=== PATIENT | male | born 1990 | race Caucasian/White ===

== ENCOUNTER 2020-11-13 13:37 | Inpatient (IN) | payer OTHER ==
[~2020-11-13] VITALS: Ht 177.8 cm; Wt 77.0 kg
[2020-11-13 15:51] LABS: ALANINE AMINOTRANSFERASE 29 U/L (12-78); ALBUMIN 4.1 G/DL (3.4-5.0); ALBUMIN/GLOBULIN RATIO 1.1 (1.1-1.5); ALKALINE PHOSPHATASE 78 IU/L (46-116); ANION GAP 38 (8-16); ASPARTATE AMINO TRANSFERASE 19 U/L (10-37); BILIRUBIN,TOTAL 0.9 MG/DL (0.1-1.0); BLOOD UREA NITROGEN 38 MG/DL (7-18); BUN/CREATININE RATIO 14.2 (5.4-32.0); CALCIUM 9.3 MG/DL (8.5-10.1); CHLORIDE 83 MMOL/L (99-107); CREATININE 2.68 MG/DL (0.60-1.10); SODIUM 129 MMOL/L (135-145); TOTAL PROTEIN 7.8 G/DL (6.4-8.2); eGFR 28 ML/MIN
[2020-11-13] MEDS ORDERED: insulin regular, human U-100 3ml vial - multi-dose IV ONE (16:00)
[2020-11-13] MEDS ORDERED: normal saline 1000ML IV soln IVB ONE ×3 (16:00→18:45)
[2020-11-13 16:12] LABS: GLUCOSE 869 MG/DL (70-104); POTASSIUM 6.5 MMOL/L (3.5-5.1); TOTAL CARBON DIOXIDE 8.5 MMOL/L (24-32)
[2020-11-13] MEDS ORDERED: insulin regular, human 10 units/0.1 ml syringe IV ONE (16:15)
[2020-11-13] MEDS ORDERED: albuterol 2.5 MG/3 ML nebule NEB ONE (16:25)
[2020-11-13] MEDS ORDERED: sodium polystyrene sulfonate 15gm/60ml oral suspension PO ONE (16:25)
[2020-11-13] MEDS: Insulin Reg/NS 100units/100mL 100 ML IV PRN (16:45)
[2020-11-13 16:50] LABS: ABG BASE EXCESS -22.9 mmol/L (-2.0-2.0); ABG HCO3 4.5 mmol/L (22.0-26.0); ABG OXYGEN SATURATION 90.3 % (94-97); ABG PCO2 (T) 14.5 mmHg (35.0-48.0); ABG PO2 (T) 69.2 mmHg (75.0-100.0); ALLEN'S TEST POSITIVE; FCOHb 0.2 % (0.0-3.9); FMetHb 0.4 % (0.0-1.5); FO2Hb 89.8 % (94-97); TOTAL HEMOGLOBIN 12.9 G/dl (14.0-18.0)
[2020-11-13] MEDS ORDERED: INSU100C10 SQ (17:11)
[2020-11-13] MEDS ORDERED: INSU100V9 SQ ×2 (17:11)
[2020-11-13 17:22] LABS: BASOPHILS # (AUTO) 0.1 X10'3 (0-0.2); BASOPHILS % (AUTO) 0.3 % (0-1); EOSINOPHILS % (AUTO) 0 % (0-6); LYMPHOCYTES # (AUTO) 1.2 X10'3 (1.1-4.8); LYMPHOCYTES % (AUTO) 5.6 % (21-51); MEAN PLATELET VOLUME 9.6 FL (7.4-10.4); MONOCYTES # (AUTO) 1.4 X10'3 (0-0.9); MONOCYTES % (AUTO) 6.6 % (2-12); NEUTROPHILS % (AUTO) 87.5 % (42-75); PLATELET COUNT 265 X10'3 (140-440); WHITE BLOOD COUNT 21.8 X10'3 (4.5-11.0)
[2020-11-13 17:29] LABS: HEMATOCRIT 40.3 % (42.0-52.0); HEMOGLOBIN 13.2 g/dl (14.0-17.9); MEAN CORPUSCULAR HEMOGLOBIN 30.7 PG (27.0-31.0); MEAN CORPUSCULAR HGB CONC 32.9 g/dL (33.0-36.5); MEAN CORPUSCULAR VOLUME 93.5 FL (78-98); RED BLOOD COUNT 4.31 X10'6 (4.70-6.10); RED CELL DISTRIBUTION WIDTH 13.2 % (11.5-14.5)
[2020-11-13 17:39] LABS: CLARITY,URINE CLOUDY (Clear); COLOR,URINE STRAW (Yellow); GLUCOSE, URINE >=1000 mg/dl (Neg); KETONES,URINE 40 mg/dl (Neg); LEUKOCYTE ESTERASE ,URINE NEGATIVE (Neg); NITRITES, URINE NEGATIVE (Neg); OCCULT BLOOD,URINE NEGATIVE (Neg); PROTEIN,URINE NEGATIVE (Neg); UROBILINOGEN,URINE 0.2 E.U/dL (0.2-1.0)
[2020-11-13 17:40] LABS: UA COLLECTION TYPE URINAL
[2020-11-13 17:48] LABS: BACTERIA,URINE 4+ /HPF (Neg); SQUAMOUS EPITHELIAL CELL,UR MODERATE /LPF (FEW)
[2020-11-13 17:49] LABS: RBC,URINE 0-2 /HPF (0-2); WBC CLUMPS,URINE FEW /HPF (NEGATIVE)
[2020-11-13 17:52] LABS: YEAST MODERATE /HPF (NEGATIVE)
[2020-11-13] MEDS ORDERED: CefTRIAXone/D5W-Rocephin 1gm 50 ML IV ONE (18:10)
[2020-11-13] MEDS ORDERED: metoclopramide 5 mg/ml inj IV PRN (18:20)
[2020-11-13] MEDS ORDERED: magnesium 2GM in 50ml NS 50 ML IV PRN (18:20)
[2020-11-13] MEDS ORDERED: potassium Cl 20 mEq SR tablet PO PRN ×3 (18:20)
[2020-11-13] MEDS ORDERED: acetaminophen 325mg tablet PO PRN ×2 (18:20)
[2020-11-13] MEDS ORDERED: sodium phosphate inj. 30 MMOL in dextrose 5%-water 250 ML IV PRN (18:20)
[2020-11-13] MEDS ORDERED: sodium bicarbonate (8.4%) inj. 100 MEQ in dextrose 5% water 500ml 500 ML IV PRN (18:20)
[2020-11-13] MEDS ORDERED: mag hydrox/Alum hydrox/simeth 30ml oral suspension PO PRN (18:20)
[2020-11-13] MEDS ORDERED: Neutra Phos packet PO PRN (18:20)
[2020-11-13] MEDS ORDERED: potassium Cl 40MEQ/1/2NS 520ml 520 ML IV PRN ×4 (18:20)
[2020-11-13] MEDS ORDERED: magnesium Cl slow-release 64mg tablet PO PRN (18:20)
[2020-11-13] MEDS ORDERED: sodium bicarbonate (8.4%) inj. 50 MEQ in dextrose 5% water 500ml 250 ML IV PRN (18:20)
[2020-11-13] MEDS ORDERED: magnesium 4gm in 100ml NS 100 ML IV PRN (18:20)
[2020-11-13] MEDS ORDERED: sodium phosphate inj. 15 MMOL in dextrose 5%-water 250 ML IV PRN (18:20)
[2020-11-13] MEDS ORDERED: magnesium hydroxide 30ml (MOM) UD suspension PO PRN (18:20)
[2020-11-13 19:34] LABS: ALANINE AMINOTRANSFERASE 21 U/L (12-78); ALBUMIN 3.7 G/DL (3.4-5.0); ALKALINE PHOSPHATASE 74 IU/L (46-116); ANION GAP 32 (8-16); ASPARTATE AMINO TRANSFERASE 6 U/L (10-37); BILIRUBIN,TOTAL 0.6 MG/DL (0.1-1.0); BLOOD UREA NITROGEN 36 MG/DL (7-18); BUN/CREATININE RATIO 14.3 (5.4-32.0); CALCIUM 8.5 MG/DL (8.5-10.1); CHLORIDE 96 MMOL/L (99-107); CREATININE 2.52 MG/DL (0.60-1.10); ETHANOL < 0.010 GM/DL (0.0-0.010); PHOSPHORUS 5.3 MG/DL (2.3-4.5); POTASSIUM 4.5 MMOL/L (3.5-5.1); SODIUM 139 MMOL/L (135-145); TOTAL PROTEIN 7.3 G/DL (6.4-8.2); eGFR 30 ML/MIN
[2020-11-13] MEDS: fluconazole 100mg tablet PO SCH (19:46)
[2020-11-13] MEDS: vancomycin/NS 1 GM ADD-VANTAGE 250 ML IV SCH (19:46)
[2020-11-13] MEDS: enoxaparin 40mg/0.4ml syringe SQ SCH (19:50)
[2020-11-13 19:57] LABS: GLUCOSE 574 MG/DL (70-104)
[2020-11-13 19:58] LABS: TOTAL CARBON DIOXIDE 11.1 MMOL/L (24-32)
[2020-11-13] MEDS: K and/or MAG REPLACEMENT MC SCH (20:00)
[2020-11-13] MEDS ORDERED: K and/or MAG REPLACEMENT MC SCH (20:00)
--- NOTE | 2020-11-13 20:06 | NUR ---
[phone]. Insulin drip left at 7 u/h
[2020-11-13 20:43] LABS: URINE AMPHETAMINE SCREEN NEGATIVE (Neg); URINE BARBITUATE SCREEN NEGATIVE (Neg); URINE BENZODIAZEPINES SCREEN NEGATIVE (Neg); URINE CANNABINOID SCREEN NEGATIVE (Neg); URINE COCAINE SCREEN NEGATIVE (Neg); URINE METHADONE SCREEN NEGATIVE (Neg); URINE OPIATE SCREEN NEGATIVE (Neg); URINE PHENCYCLIDINE SCREEN NEGATIVE (Neg)
[2020-11-13] MEDS ORDERED: temazepam 15mg capsule PO PRN (21:00)
[2020-11-13 22:00] VITALS: BP 109/56
--- NOTE | 2020-11-13 22:00 | NUR ---
Received the pt from ER. Pt AAOx3, breathing even and unlabored on room air. Follows command, moves all 4 extremities. Insulin running at 7 units/hr. Updated on plan of care. Pt oriented to the unit, advised to call for help, verbalized understanding.
[2020-11-13] MEDS: normal saline 1000ml 1,000 ML IV SCH ×2 (22:10→22:20)
[2020-11-13] MEDS: benzocaine/menthol oral lozeng 1 EACH BOX MM PRN (22:37)
[2020-11-13 22:44] LABS: ALBUMIN 3.2 G/DL (3.4-5.0); ANION GAP 24 (8-16); BLOOD UREA NITROGEN 33 MG/DL (7-18); BUN/CREATININE RATIO 15.9 (5.4-32.0); CALCIUM 8.1 MG/DL (8.5-10.1); CHLORIDE 104 MMOL/L (99-107); CREATININE 2.07 MG/DL (0.60-1.10); GLUCOSE 358 MG/DL (70-104); PHOSPHORUS 2.9 MG/DL (2.3-4.5); POTASSIUM 3.9 MMOL/L (3.5-5.1); SODIUM 144 MMOL/L (135-145); TOTAL CARBON DIOXIDE 16.3 MMOL/L (24-32); eGFR 38 ML/MIN
[2020-11-14] MEDS: potassium CL 20mEq in D5-1/2NS 1,000 ML IV PRN ×2 (01:32→07:48)
[2020-11-14] MEDS: normal saline 1000ml 1,000 ML IV SCH ×4 (02:20→20:59)
[2020-11-14 03:36] LABS: BASOPHILS # (AUTO) 0.1 X10'3 (0-0.2); BASOPHILS % (AUTO) 0.4 % (0-1); EOSINOPHILS % (AUTO) 0 % (0-6); HEMATOCRIT 33.2 % (42.0-52.0); HEMOGLOBIN 11.1 g/dl (14.0-17.9); LYMPHOCYTES # (AUTO) 2.6 X10'3 (1.1-4.8); LYMPHOCYTES % (AUTO) 13.8 % (21-51); MEAN CORPUSCULAR HEMOGLOBIN 30.4 PG (27.0-31.0); MEAN CORPUSCULAR HGB CONC 33.5 g/dL (33.0-36.5); MEAN CORPUSCULAR VOLUME 90.7 FL (78-98); MEAN PLATELET VOLUME 8.5 FL (7.4-10.4); MONOCYTES # (AUTO) 1.3 X10'3 (0-0.9); NEUTROPHILS # (AUTO) 14.8 X10'3 (1.8-7.7); NEUTROPHILS % (AUTO) 78.8 % (42-75); PLATELET COUNT 245 X10'3 (140-440); RED BLOOD COUNT 3.66 X10'6 (4.70-6.10); RED CELL DISTRIBUTION WIDTH 13.4 % (11.5-14.5); WHITE BLOOD COUNT 18.7 X10'3 (4.5-11.0)
[2020-11-14 03:40] LABS: ALBUMIN 3.1 G/DL (3.4-5.0); ANION GAP 10 (8-16); BLOOD UREA NITROGEN 27 MG/DL (7-18); BUN/CREATININE RATIO 16.3 (5.4-32.0); CALCIUM 7.9 MG/DL (8.5-10.1); CHLORIDE 105 MMOL/L (99-107); CHOL/HDL RATIO 2.2 (0.00-4.99); CHOLESTEROL 128 MG/DL (0-200); CREATININE 1.66 MG/DL (0.60-1.10); GLUCOSE 209 MG/DL (70-104); HDL CHOLESTEROL 58 MG/DL (35-60); LDL CHOLESTEROL 63 MG/DL (50-100); MAGNESIUM 2.1 MG/DL (1.5-2.4); PHOSPHORUS 2.4 MG/DL (2.3-4.5); POTASSIUM 3.4 MMOL/L (3.5-5.1); SODIUM 141 MMOL/L (135-145); TOTAL CARBON DIOXIDE 25.9 MMOL/L (24-32); TRIGLYCERIDES 61 MG/DL (20-135); eGFR 49 ML/MIN
[2020-11-14] MEDS: Insulin Reg/NS 100units/100mL 100 ML IV PRN (04:17)
[2020-11-14] MEDS: potassium Cl 20 mEq SR tablet PO PRN ×3 (04:17→16:56)
--- NOTE | 2020-11-14 05:50 | NUR ---
BS 146. Increased D5 1/2 NS 20K to 200 cc/hr as per protocol.
--- NOTE | 2020-11-14 06:05 | NUR ---
Problems reprioritized. Patient report given, questions answered & plan of care reviewed with Alysha DODGE.
--- NOTE | 2020-11-14 06:21 | NUR ---
Patient in room PCU 3018. I have received report from ECHO Bryan and had the opportunity to ask questions and assume patient care. Pt sleeping comfortably at change of shift.
[2020-11-14 07:00] VITALS: BP 109/54
[2020-11-14 07:40] LABS: ANION GAP 8 (8-16); BLOOD UREA NITROGEN 24 MG/DL (7-18); BUN/CREATININE RATIO 17.4 (5.4-32.0); CALCIUM 7.7 MG/DL (8.5-10.1); CHLORIDE 107 MMOL/L (99-107); CREATININE 1.38 MG/DL (0.60-1.10); GLUCOSE 130 MG/DL (70-104); PHOSPHORUS 2.4 MG/DL (2.3-4.5); POTASSIUM 3.3 MMOL/L (3.5-5.1); SODIUM 142 MMOL/L (135-145); TOTAL CARBON DIOXIDE 26.6 MMOL/L (24-32); eGFR 60 ML/MIN
[2020-11-14] MEDS: benzocaine/menthol oral lozeng 1 EACH BOX MM PRN ×5 (07:48→21:00)
[2020-11-14] MEDS: K and/or MAG REPLACEMENT MC SCH ×2 (08:00→20:00)
[2020-11-14] MEDS ORDERED: CefTRIAXone/D5W-Rocephin 1gm 50 ML IV SCH (08:00)
--- NOTE | 2020-11-14 08:04 | NUR ---
Paged Dr Gaitan PAGER ID: [phone] MESSAGE: Phuc Akers RM [id number] FYI Anion gap 8, C02 26.6, BS 107, can I feed pt and turn off insulin drip in 1 hour per protocol? Thanks Alysha Taylor [phone]
--- NOTE | 2020-11-14 08:39 | NUR ---
PAGER ID: [phone] MESSAGE: [id number] JOSE J. GAP IS CLOSED. WOULD LIKE TO STOP INSULIN GTT PT D51/2NS IS RUNNING AT 250 ML/H AND BS IS 107. ELIGIO CLAY
[2020-11-14] MEDS ORDERED: dextrose ORAL solution 15 GM/59 ML bottle PO PRN ×2 (08:40)
[2020-11-14] MEDS ORDERED: dextrose 50%-water 50ml dispensing syringe IV PRN ×2 (08:40)
[2020-11-14] MEDS ORDERED: MESSAGE TO PHARMACY PO ONE (08:40)
[2020-11-14] MEDS ORDERED: glucagon, human recombinant 1mg kit SUBCUT PRN (08:40)
--- NOTE | 2020-11-14 09:26 | NUR ---
Initial: Pt presented with c/o N/V and abdominal pain, admit with DKA, possible sepsis, possible UTI, hyponatremia (serum Na now WNL), and ZAINAB. BG levels 869 mg/dL on admit, A1c pending at this time. Per H&P pt reports he has been taking less insulin d/t insurance related changes. Will f/u for DM education pending A1c lab results. Pt currently NPO. Pending physical assessment at this time. Will continue to follow closely. Recommendations: 1) Advance to CHO controlled diet as medically indicated 2) Monitor need for additional protein with diet advancement 3) Bowel care per rx 4) Scaled weights per rx 5) DM education once stable pending A1c results Addendum: 11/14/20 at [address] Amended: Links added.
[2020-11-14] MEDS: fluconazole 100mg tablet PO SCH (09:28)
[2020-11-14 09:36] LABS: HEMOGLOBIN A1C 13.7 % (4.5-6.2)
[2020-11-14 11:00] VITALS: BP 111/56
[2020-11-14 15:00] VITALS: BP 113/64
[2020-11-14] MEDS ORDERED: Insulin Reg/NS 100units/100mL 100 ML IV SCH (16:25)
[2020-11-14] MEDS: piperacillin/tazo 3.375gm/50ml 50 ML IV SCH ×2 (16:32→23:23)
[2020-11-14 18:00] VITALS: BP 114/51
--- NOTE | 2020-11-14 18:30 | NUR ---
Patient in room PCU 3018. I have received report from ALANA and had the opportunity to ask questions and assume patient care.
[2020-11-14] MEDS: insulin Lispro (HumaLOG) vial - multi-dose SQ SCH ×2 (18:42→20:50)
[2020-11-14] MEDS: vancomycin/NS 1 GM ADD-VANTAGE 250 ML IV SCH (18:42)
--- NOTE | 2020-11-14 18:46 | NUR ---
Problems reprioritized. Patient report given, questions answered & plan of care reviewed with ECHO Sweeney. Pt sleeping comfortably at change of shift. All pt needs met at this time.
[2020-11-14] MEDS: ondansetron/PF 4mg/2ml inj IV PRN (19:50)
[2020-11-14] MEDS: lactobacillus rhamnosus 10,000 MMU CELLS/CAPSULE PO SCH (20:00)
[2020-11-14] MEDS: insulin glargine (Lantus) pen - multi-dose SQ SCH (20:51)
[2020-11-14] MEDS: enoxaparin 40mg/0.4ml syringe SQ SCH (20:54)
[2020-11-14 22:00] VITALS: BP 112/58
[2020-11-15 01:35] VITALS: BP 117/55
[2020-11-15] MEDS: normal saline 1000ml 1,000 ML IV SCH ×3 (03:34→21:09)
[2020-11-15] MEDS: ondansetron/PF 4mg/2ml inj IV PRN (03:34)
[2020-11-15 06:00] VITALS: BP 135/66
--- NOTE | 2020-11-15 06:30 | NUR ---
Problems reprioritized. Patient report given, questions answered & plan of care reviewed with
--- NOTE | 2020-11-15 06:38 | NUR ---
Patient in room PCU 3018. I have received report from Zahra DODGE and had the opportunity to ask questions and assume patient care.
[2020-11-15 06:45] LABS: BASOPHILS % (AUTO) 0.2 % (0-1); EOSINOPHILS % (AUTO) 0.1 % (0-6); HEMATOCRIT 34.3 % (42.0-52.0); HEMOGLOBIN 11.2 g/dl (14.0-17.9); LYMPHOCYTES # (AUTO) 2.6 X10'3 (1.1-4.8); LYMPHOCYTES % (AUTO) 21.9 % (21-51); MEAN CORPUSCULAR HEMOGLOBIN 30.5 PG (27.0-31.0); MEAN CORPUSCULAR HGB CONC 32.6 g/dL (33.0-36.5); MEAN CORPUSCULAR VOLUME 93.4 FL (78-98); MEAN PLATELET VOLUME 8.9 FL (7.4-10.4); MONOCYTES # (AUTO) 0.7 X10'3 (0-0.9); MONOCYTES % (AUTO) 5.6 % (2-12); NEUTROPHILS # (AUTO) 8.6 X10'3 (1.8-7.7); NEUTROPHILS % (AUTO) 72.2 % (42-75); PLATELET COUNT 200 X10'3 (140-440); RED BLOOD COUNT 3.67 X10'6 (4.70-6.10); RED CELL DISTRIBUTION WIDTH 13.8 % (11.5-14.5)
[2020-11-15 07:19] LABS: MAGNESIUM 2.1 MG/DL (1.5-2.4)
[2020-11-15 07:49] LABS: ALANINE AMINOTRANSFERASE 27 U/L (12-78); ALBUMIN/GLOBULIN RATIO 0.9 (1.1-1.5); ALKALINE PHOSPHATASE 67 IU/L (46-116); ANION GAP 23 (8-16); ASPARTATE AMINO TRANSFERASE 17 U/L (10-37); BILIRUBIN,TOTAL 0.7 MG/DL (0.1-1.0); BLOOD UREA NITROGEN 15 MG/DL (7-18); BUN/CREATININE RATIO 12.2 (5.4-32.0); CALCIUM 8.7 MG/DL (8.5-10.1); CHLORIDE 103 MMOL/L (99-107); CREATININE 1.23 MG/DL (0.60-1.10); GLUCOSE 296 MG/DL (70-104); POTASSIUM 4.7 MMOL/L (3.5-5.1); SODIUM 141 MMOL/L (135-145); TOTAL CARBON DIOXIDE 15.3 MMOL/L (24-32); TOTAL PROTEIN 6.3 G/DL (6.4-8.2); eGFR 69 ML/MIN
[2020-11-15] MEDS: K and/or MAG REPLACEMENT MC SCH ×2 (08:00→20:00)
[2020-11-15] MEDS: fluconazole 100mg tablet PO SCH (08:13)
[2020-11-15] MEDS: piperacillin/tazo 3.375gm/50ml 50 ML IV SCH ×3 (08:13→23:51)
[2020-11-15] MEDS: lactobacillus rhamnosus 10,000 MMU CELLS/CAPSULE PO SCH ×2 (08:13→21:09)
[2020-11-15] MEDS: insulin Lispro (HumaLOG) vial - multi-dose SQ SCH ×3 (09:09→18:55)
[2020-11-15 11:00] VITALS: BP 123/69
[2020-11-15] MEDS: benzocaine/menthol oral lozeng 1 EACH BOX MM PRN ×3 (12:53→21:09)
[2020-11-15 15:00] VITALS: BP 136/76
--- NOTE | 2020-11-15 15:28 | NUR ---
F/u 11/15: Pt A1C results 13.7; would benefit from DM ed prior to discharge this admit. Addendum: 11/15/20 at [address] Amended: Links added.
--- NOTE | 2020-11-15 18:30 | NUR ---
Patient in room PCU 3018. I have received report from SERA and had the opportunity to ask questions and assume patient care.
[2020-11-15] MEDS: vancomycin/NS 1 GM ADD-VANTAGE 250 ML IV SCH (18:58)
[2020-11-15 19:00] VITALS: BP 127/74
[2020-11-15] MEDS: enoxaparin 40mg/0.4ml syringe SQ SCH (20:00)
[2020-11-15] MEDS: insulin glargine (Lantus) pen - multi-dose SQ SCH (21:07)
[2020-11-15] MEDS ORDERED: dextrose 50%-water 50ml dispensing syringe IV PRN ×2 (21:20)
[2020-11-15] MEDS ORDERED: MESSAGE TO PHARMACY PO ONE (21:20)
[2020-11-15] MEDS ORDERED: dextrose ORAL solution 15 GM/59 ML bottle PO PRN ×2 (21:20)
[2020-11-15] MEDS ORDERED: glucagon, human recombinant 1mg kit SUBCUT PRN (21:20)
[2020-11-15] MEDS: sodium bicarbonate 650mg tablet PO SCH (21:43)
[2020-11-15 22:00] VITALS: BP 162/85
[2020-11-16 03:00] VITALS: BP 157/91
[2020-11-16] MEDS: normal saline 1000ml 1,000 ML IV SCH ×4 (04:27→23:58)
[2020-11-16 06:00] VITALS: BP 138/74
--- NOTE | 2020-11-16 06:29 | NUR ---
Problems reprioritized. Patient report given, questions answered & plan of care reviewed with TIMOTHY.
[2020-11-16 06:30] LABS: BASOPHILS % (AUTO) 0.5 % (0-1); EOSINOPHILS # (AUTO) 0.1 X10'3 (0-0.9); EOSINOPHILS % (AUTO) 1.5 % (0-6); HEMATOCRIT 32.9 % (42.0-52.0); LYMPHOCYTES # (AUTO) 2.3 X10'3 (1.1-4.8); LYMPHOCYTES % (AUTO) 37.1 % (21-51); MEAN CORPUSCULAR HEMOGLOBIN 30.7 PG (27.0-31.0); MEAN CORPUSCULAR HGB CONC 33.4 g/dL (33.0-36.5); MEAN CORPUSCULAR VOLUME 92.1 FL (78-98); MEAN PLATELET VOLUME 8.3 FL (7.4-10.4); MONOCYTES # (AUTO) 0.4 X10'3 (0-0.9); MONOCYTES % (AUTO) 6.3 % (2-12); NEUTROPHILS # (AUTO) 3.4 X10'3 (1.8-7.7); NEUTROPHILS % (AUTO) 54.6 % (42-75); PLATELET COUNT 175 X10'3 (140-440); RED BLOOD COUNT 3.58 X10'6 (4.70-6.10); RED CELL DISTRIBUTION WIDTH 13.5 % (11.5-14.5); WHITE BLOOD COUNT 6.2 X10'3 (4.5-11.0)
--- NOTE | 2020-11-16 06:39 | NUR ---
Patient in room PCU 3018. I have received report from ECHO Sweeney and had the opportunity to ask questions and assume patient care.
[2020-11-16 06:45] LABS: ALANINE AMINOTRANSFERASE 59 U/L (12-78); ALBUMIN 2.7 G/DL (3.4-5.0); ALBUMIN/GLOBULIN RATIO 0.8 (1.1-1.5); ALKALINE PHOSPHATASE 69 IU/L (46-116); ANION GAP 10 (8-16); ASPARTATE AMINO TRANSFERASE 59 U/L (10-37); BILIRUBIN,TOTAL 0.7 MG/DL (0.1-1.0); BLOOD UREA NITROGEN 8 MG/DL (7-18); BUN/CREATININE RATIO 8.1 (5.4-32.0); CALCIUM 8.5 MG/DL (8.5-10.1); CHLORIDE 104 MMOL/L (99-107); CREATININE 0.99 MG/DL (0.60-1.10); GLUCOSE 164 MG/DL (70-104); MAGNESIUM 1.5 MG/DL (1.5-2.4); PHOSPHORUS 1.7 MG/DL (2.3-4.5); POTASSIUM 4.5 MMOL/L (3.5-5.1); SODIUM 141 MMOL/L (135-145); TOTAL CARBON DIOXIDE 26.7 MMOL/L (24-32); eGFR 88 ML/MIN
[2020-11-16] MEDS: sodium bicarbonate 650mg tablet PO SCH ×3 (07:20→22:00)
[2020-11-16] MEDS: lactobacillus rhamnosus 10,000 MMU CELLS/CAPSULE PO SCH ×2 (07:20→21:57)
[2020-11-16] MEDS: fluconazole 100mg tablet PO SCH (07:20)
[2020-11-16] MEDS: piperacillin/tazo 3.375gm/50ml 50 ML IV SCH ×3 (07:26→23:59)
[2020-11-16] MEDS: K and/or MAG REPLACEMENT MC SCH ×2 (08:00→20:00)
[2020-11-16] MEDS: insulin Lispro (HumaLOG) vial - multi-dose SQ SCH ×4 (08:38→21:58)
[2020-11-16 11:00] VITALS: BP 146/83
--- NOTE | 2020-11-16 12:42 | NUR ---
MICRO RESULT TAKEN FROM LAB, REPORTED TO PRIMARY RN.
[2020-11-16 15:00] VITALS: BP 132/88
--- NOTE | 2020-11-16 15:26 | NUR ---
Consult: A1c 13.7%. RD project management intern met with pt at bedside for written/verbal DM ed with RD contact information provided. Pt reports eating balanced meals and working with nutrition and dietetics instructor weekly, but recent divorce affected insurance and insulin supply. Encouraged pt to discuss situation with nutrition and dietetics instructor and pt declines any questions at this time. Noted in MD note CM/SW assisting pt with insurance to get insulin paid for. Will remain available. Addendum: 11/16/20 at [address] Amended: Links added. Addendum: 11/16/20 at [address] VITALY kate w/ contracts intern note.
[2020-11-16 18:00] VITALS: BP 164/92
[2020-11-16] MEDS ORDERED: VANCOMYCIN LEVEL IV ONE (18:30)
--- NOTE | 2020-11-16 18:30 | NUR ---
Patient in room PCU 3018. I have received report from Liana DODGE and Chandan DODGE and had the opportunity to ask questions and assume patient care.
--- NOTE | 2020-11-16 18:33 | NUR ---
Problems reprioritized. Patient report given, questions answered & plan of care reviewed with ECHO Patino.
[2020-11-16] MEDS: vancomycin/NS 1 GM ADD-VANTAGE 250 ML IV SCH (19:38)
[2020-11-16] MEDS: enoxaparin 40mg/0.4ml syringe SQ SCH (20:00)
[2020-11-16] MEDS ORDERED: insulin glargine (Lantus) pen - multi-dose SQ SCH (21:00)
[2020-11-16 22:00] VITALS: BP 142/79
[2020-11-16] MEDS: benzocaine/menthol oral lozeng 1 EACH BOX MM PRN (22:04)
[2020-11-17] MEDS: benzocaine/menthol oral lozeng 1 EACH BOX MM PRN ×2 (00:06→08:05)
[2020-11-17 02:00] VITALS: BP 144/85
[2020-11-17 06:00] VITALS: BP 149/83
[2020-11-17 06:35] LABS: BASOPHILS % (AUTO) 0.5 % (0-1); EOSINOPHILS # (AUTO) 0.1 X10'3 (0-0.9); EOSINOPHILS % (AUTO) 1.7 % (0-6); HEMATOCRIT 35.3 % (42.0-52.0); HEMOGLOBIN 11.9 g/dl (14.0-17.9); LYMPHOCYTES # (AUTO) 2.4 X10'3 (1.1-4.8); LYMPHOCYTES % (AUTO) 38.8 % (21-51); MEAN CORPUSCULAR HEMOGLOBIN 30.9 PG (27.0-31.0); MEAN CORPUSCULAR HGB CONC 33.7 g/dL (33.0-36.5); MEAN CORPUSCULAR VOLUME 91.8 FL (78-98); MEAN PLATELET VOLUME 8.7 FL (7.4-10.4); MONOCYTES # (AUTO) 0.4 X10'3 (0-0.9); MONOCYTES % (AUTO) 5.7 % (2-12); NEUTROPHILS # (AUTO) 3.3 X10'3 (1.8-7.7); NEUTROPHILS % (AUTO) 53.3 % (42-75); PLATELET COUNT 185 X10'3 (140-440); RED BLOOD COUNT 3.85 X10'6 (4.70-6.10); RED CELL DISTRIBUTION WIDTH 13.2 % (11.5-14.5); WHITE BLOOD COUNT 6.2 X10'3 (4.5-11.0)
--- NOTE | 2020-11-17 06:41 | NUR ---
Problems reprioritized. Patient report given, questions answered & plan of care reviewed with Ministerio RN.
[2020-11-17 07:01] LABS: ALANINE AMINOTRANSFERASE 52 U/L (12-78); ALBUMIN 2.6 G/DL (3.4-5.0); ALBUMIN/GLOBULIN RATIO 0.7 (1.1-1.5); ALKALINE PHOSPHATASE 72 IU/L (46-116); ANION GAP 6 (8-16); ASPARTATE AMINO TRANSFERASE 29 U/L (10-37); BILIRUBIN,TOTAL 0.4 MG/DL (0.1-1.0); BLOOD UREA NITROGEN 7 MG/DL (7-18); CALCIUM 8.7 MG/DL (8.5-10.1); CHLORIDE 104 MMOL/L (99-107); CREATININE 0.87 MG/DL (0.60-1.10); GLUCOSE 218 MG/DL (70-104); MAGNESIUM 1.6 MG/DL (1.5-2.4); PHOSPHORUS 2.9 MG/DL (2.3-4.5); POTASSIUM 3.6 MMOL/L (3.5-5.1); SODIUM 142 MMOL/L (135-145); TOTAL CARBON DIOXIDE 32.1 MMOL/L (24-32); TOTAL PROTEIN 6.1 G/DL (6.4-8.2); eGFR > 90 ML/MIN
--- NOTE | 2020-11-17 07:22 | NUR ---
Patient in room PCU 3018. I have received report from АННА DODGE and had the opportunity to ask questions and assume patient care.
[2020-11-17] MEDS: lactobacillus rhamnosus 10,000 MMU CELLS/CAPSULE PO SCH (08:05)
[2020-11-17] MEDS: sodium bicarbonate 650mg tablet PO SCH (08:05)
[2020-11-17] MEDS: piperacillin/tazo 3.375gm/50ml 50 ML IV SCH (08:05)
[2020-11-17] MEDS: fluconazole 100mg tablet PO SCH (08:05)
[2020-11-17] MEDS: normal saline 1000ml 1,000 ML IV SCH (08:10)
[2020-11-17] MEDS: K and/or MAG REPLACEMENT MC SCH (08:27)
[2020-11-17] MEDS ORDERED: VANCOMYCIN LEVEL IV ONE (08:30)
[2020-11-17] MEDS: insulin Lispro (HumaLOG) vial - multi-dose SQ SCH (09:05)
[2020-11-17] MEDS ORDERED: BENZ1LOZ30 MM (10:13)
[2020-11-17] MEDS ORDERED: LACT1CAP26 PO (10:13)
[2020-11-17] MEDS ORDERED: CEFD300C3 PO (10:13)
[2020-11-17] MEDS ORDERED: SULF1TAB49 PO (10:13)
[2020-11-17 11:22] VITALS: BP 117/73
--- NOTE | 2020-11-17 12:42 | NUR ---
Reassessment 11/17: PO intake less than 25% on carb controlled diet not meeting estimated nutrient needs, though noted with 100% PO intake at breakfast this morning. RD trestle mainternance laborer met with pt at bedside to discuss appetite. Pt reports poor appetite d/t sore throat, however feels is resolving and appetite should improve. Pt reports has not been seen by dietary, d/w dietary to see pt for assistance with menu selection and further food preferences. Pt provided with alternative menu to provide additional food options. Pt reports liking peanut butter and jelly sandwiches and tuna fish sandwiches, d/w dietary. Last BM 11/16, PRN bowel care available. Pt provided with RD contact information. Will continue to monitor for ONS need if appetite does not improve. Recommendations: 1) Continue CHO controlled diet 2) [place] food preferences and encourage PO intake, monitor need for ONS 3) Bowel care per rx 4) Scaled weights per rx Addendum: 11/17/20 at [address] Amended: Links added. Addendum: 11/17/20 at [address] I have reviewed and agree with note by Shield Runner. Megha Mendoza RD
[2020-11-17 15:00] VITALS: BP 156/87
--- NOTE | 2020-11-17 15:00 | NUR ---
pt discharge packet was given: educated about disease process, reason for visit, treatment, in the event of emergencies, taught management techniques related to monitoring blood sugar, glucose control, insulin, etc., called into pharmacy for glucometer and test strips. both iv access d/c, clean, dry, intact. iv insertion sites taped with gauze. telemonitor taken off and cleaned then returned to unit monitor. pt belongings returned and pt independently dressed self and ambulated out
--- NOTE | 2020-11-17 15:54 | NUR ---
pt departed hospital pcu floor at 1550, no wheelchair needed
--- NOTE | 2020-11-17 16:00 | NUR ---
Student documentation: I have reviewed and agree with all interventions, assessments performed and documented by Karsten BLACKWELL.
--- NOTE | 2020-11-18 10:14 | NUR ---
CASE MANAGEMENT DISCHARGE FOLLOW UP: Spoke with pt via telephone. Reports that he is doing better, a little lightheaded. States FSBG this AM was 172. States took his insulin this morning. Denies fever, throat pain. Pt states that he still has a sore throat upon swallowing but that it is improving. Verbalizes understanding of s/sx requiring further evaluation/emergent assistance. Verbalizes understanding of new and current medications. Verbalizes compliance with MD discharge instructions. Verbalizes understanding of the importance in making/keeping follow-up appointments, was notified by his work's HR that his health insurance is now active, he will search for a new PCP and set up follow up appointment. States no further questions/concerns at this time. Addendum: 11/18/20 at 1020 by Yesenia Sorenson RN Pt states was unaware that he had an Rx order for sade, back home. Advised pt that he can purchase probiotics OTC and/or get from cultured foods such as yogurt, kimchi, sauerkraut. Educated pt on purpose of probiotic to prevent complications from antibiotic use, pt verbalizes understanding of s/sx of complications from antibiotic use.
== END 2020-11-17 15:50 | disposition home or self-care (01) | DRG 871 ==
LOC: ER 13:38 → ED HOLD 18:18 → EDBEDREQ 20:27 → PCU 3S 21:47
PROVIDERS: ADMIT Family Medicine; ATTEND Family Medicine
DX: A41.9 Sepsis, unspecified organism (principal); E10.10 Type 1 diabetes mellitus with ketoacidosis without coma; E87.1 Hypo-osmolality and hyponatremia; N17.9 Acute kidney failure, unspecified; N39.0 Urinary tract infection, site not specified; E86.0 Dehydration; E87.6 Hypokalemia; F17.210 Nicotine dependence, cigarettes, uncomplicated; J02.9 Acute pharyngitis, unspecified; E87.5 Hyperkalemia; Z79.4 Long term (current) use of insulin
CPT/HCPCS: 36415; 36600; 71045; 80048; 80053; 80061; 80202; 80305; 80320; 81001; 82009; 82803; 82948; 83036; 83605; 83735; 84100; 84145; 84443; 85018; 85025; 87040; 87081; 87088; 87186; 93005; 93306; 94640; 94760; 96374; 99291; G0378; J0696; J1650; J1815; J2405; J2543; J2765; J3370; J3480; J7030